=== PATIENT | male | born 1945 | race Caucasian/White ===

== ENCOUNTER 2018-10-15 05:31 | Outpatient (CLI) | payer MEDICARE, OTHER ==
[~2018-10-15] VITALS: Ht 180.3 cm; Wt 102.1 kg
[2018-10-15] MEDS ORDERED: COLE1TAB PO (09:23)
[2018-10-15] MEDS ORDERED: SAWP1CAP PO (09:23)
[2018-10-15] MEDS ORDERED: MULT-1056 PO (09:23)
[2018-10-15] MEDS ORDERED: ZINC50TA51 PO ×2 (09:35)
[2018-10-15] MEDS ORDERED: OMEG-109 PO (09:35)
[2018-10-15] MEDS ORDERED: LORA10TA7 PO (09:35)
[2018-10-17] MEDS ORDERED: CIPR-226 PO (12:01)
[2018-10-17] MEDS ORDERED: ACET1TAB43 PO (12:02)
== END 2018-10-15 11:02 | disposition home or self-care (01) ==
LOC: PREOP 05:31
PROVIDERS: ATTEND Radiology Radiation Oncology
DX: Z01.818 Encounter for other preprocedural examination (principal)

== ENCOUNTER 2018-10-17 10:33 | Day surgery (SDC) | payer MEDICARE, OTHER ==
[2018-10-17] VITALS (13 sets, daily range): BP systolic 100–156; BP diastolic 64–96
[~2018-10-17] VITALS: Ht 180.3 cm; Wt 102.1 kg
[~2018-10-17 10:33] MED LIST: COLE1TAB PO; LORA10TA7 PO; MULT-1056 PO; OMEG-109 PO; SAWP1CAP PO; ZINC50TA51 PO
[2018-10-17] MEDS ORDERED: LACTATED RINGERS 1,000 ML IV PRN (10:40)
[2018-10-17] MEDS ORDERED: LEVOFLOXACIN 500 MG/100 ML IV 100 ML IV ONE (10:45)
[2018-10-17] MEDS ORDERED: CATHETER FLUSH 10 ML SYR IV PRN (11:00)
[2018-10-17] MEDS ORDERED: LIDOCAINE PF 2% 5 ML (XYLOCAINE) VIAL ONE (11:01)
[2018-10-17] MEDS ORDERED: ONDANSETRON 4 MG/2 ML (SDV) Z0FRAN ONE (11:01)
[2018-10-17] MEDS ORDERED: proPOfol 200 MG/20 ML (DIPRIVAN) VIAL IV ONE (11:01)
[2018-10-17] MEDS ORDERED: DEXAMETHASONE 10 MG/ML (DECADRON) 1 ML VIAL ONE (11:01)
[2018-10-17] MEDS ORDERED: SEVOFLURANE (ULTANE) 15 ML INHAL SOLN ONE ×2 (11:01→13:59)
[2018-10-17] MEDS ORDERED: MIDAZOLAM 2 MG/2 ML (VERSED) VIAL ONE (11:02)
[2018-10-17] MEDS ORDERED: fentaNYL INJECTION 100 MCG/2 ML AMP ONE (11:02)
--- NOTE | 2018-10-17 11:53 | Progress Note-Pre Operative ---
Pre-Operative Progress Note H&P Reviewed The H&P was reviewed, patient examined and no changes noted. Date Seen by Provider: October 17, 2018 Time Seen by Provider: 11:52 Date H&P Reviewed: October 17, 2018 Time H&P Reviewed: 11:52 Pre-Operative Diagnosis: Prostate cancer cT1c, PSA 8.64, [place] 7 (4+3) LUIS MIGUEL DINERO MD October 17, 2018 11:53
--- NOTE | 2018-10-17 11:58 | Discharge Inst-Simple/Standard ---
Discharge Inst-Standard Discharge Medications New, Converted or Re-Newed RX: RX Given to Pt/Family Patient Instructions/Follow Up Plan of Care/Instructions/FU: 1)One month post implant scan at [facility] November 14 at 10:00 a.m. 2)Dr. Serrano post op follow up November 14 at 1:45 p.m. Activity as Tolerated: Yes Discharge Diet: No Restrictions Other Inst to Patient Please instruct patient and/or how to remove solomon catheter Sunday 10/22 morning - if unable to void by noon contact Dr. Vergara's office [phone]. LUIS MIGUEL DINERO MD October 17, 2018 11:58
[2018-10-17] MEDS ORDERED: CIPR-226 PO (12:01)
[2018-10-17] MEDS ORDERED: ACET1TAB43 PO (12:02)
[2018-10-17] MEDS ORDERED: BACITRACIN OINTMENT 28 GM TUBE ONE (13:26)
[2018-10-17] MEDS ORDERED: MEPERIDINE (DEMEROL) INJ 50 MG/ML IVP ONE (14:15)
[2018-10-17] MEDS ORDERED: fentaNYL INJECTION 100 MCG/2 ML AMP IVP ONE (14:15)
[2018-10-17] MEDS ORDERED: ONDANSETRON 4 MG/2 ML (SDV) Z0FRAN IVP PRN (14:15)
[2018-10-17] MEDS ORDERED: morphine INJ 10 MG/ML 1ML (SYR OR VIAL) IVP ONE (14:15)
--- NOTE | 2018-10-17 14:25 | Anesthesia-General Post-Op ---
General Patient Condition Mental Status/LOC: Same as Preop Cardiovascular: Satisfactory Nausea/Vomiting: Absent Respiratory: Satisfactory Pain: Controlled Complications: Absent Post Op Complications Complications None Follow Up Care/Instructions Patient Instructions None needed. Anesthesia/Patient Condition Patient Condition Patient is doing well, no complaints, stable vital signs, no apparent adverse anesthesia problems. No complications reported per nursing. GENEVIEVE GONZALEZ CRNA October 17, 2018 14:25
--- NOTE | 2018-10-17 14:35 | Diagnostic Imaging Report ---
Fluoroscopy. Indication: Brachytherapy Fluoroscopic assistance was provided for Dr. Carballo. 14 seconds of fluoroscopy time was utilized. A single spot film of the pubic symphysis was obtained. There are numerous radiopaque seed implants overlying the pubic symphysis. Impression: Fluoroscopic assistance was provided for Dr. Carballo. Dictated by: Dictated on workstation # [id number]
--- NOTE | 2018-10-17 15:21 | Progress Note-Post Operative ---
Post-Operative Progess Note Surgeon (s)/Product Specialist (s) Surgeon LUIS MIGUEL DINERO MD Product Specialist: Giuliano PEREZ MD Pre-Operative Diagnosis Prostate cancer cT1c, PSA 8.64, [place] 7 (4+3) Post-Operative Diagnosis Same pre-op Procedure & Operative Findings Date of Procedure 10/17/18 Procedure Performed/Findings 1) 67% Cesium 131 permanent prostate seed implant 2) Injection of biodegradable hydrogel prostate-rectal spacer utilizing the SpaceOAR system 3) Cystogram Prostate volume 30 cc Anesthesia Type General Estimated Blood Loss Estimated blood loss (mL): Minimal Specimens/Packing Specimens Removed None Packing: None LUIS MIGUEL DINERO MD October 17, 2018 15:21
== END 2018-10-17 16:45 | disposition home or self-care (01) ==
LOC: SDC 10:33
PROVIDERS: ATTEND Radiology Radiation Oncology
DX: C61 Malignant neoplasm of prostate (principal); E78.00 Pure hypercholesterolemia, unspecified; K21.9 Gastro-esophageal reflux disease without esophagitis; Z85.828 Personal history of other malignant neoplasm of skin; Z80.1 Family history of malignant neoplasm of trachea, bronchus and lung; Z80.3 Family history of malignant neoplasm of breast; Z79.899 Other long term (current) drug therapy; Z88.0 Allergy status to penicillin; J30.2 Other seasonal allergic rhinitis
CPT/HCPCS: 76965; 77290; 77318; 77332; 77370; 77470; 77778; 87081

== ENCOUNTER 2018-11-14 09:38 | Outpatient (RCR) | payer MEDICARE, OTHER ==
[~2018-11-14 09:38] MED LIST changes: +ACET1TAB43 PO; +CIPR-226 PO
[2018-11-14 10:49] LABS: BUN/CREATININE RATIO 25; CREATININE SERUM 0.91 MG/DL (0.60-1.30); GFR ESTIMATED > 60
== END 2018-12-24 | disposition home or self-care (01) ==
LOC: ONC 09:38
PROVIDERS: ATTEND Radiology Radiation Oncology
DX: C61 Malignant neoplasm of prostate (principal)
CPT/HCPCS: 36415; 76873; 77290; 77331; 82565; 84520; 99205